=== PATIENT | female | born 1985 | race Two or more races ===

== ENCOUNTER → 2020-11-25 | Day surgery (SDC) | payer OTHER ==
[~2020-11-25] MED LIST: ZESTRIL2.5 MG PO
== END | disposition home or self-care (01) ==
LOC: ADM 11-22 08:30 → CIR.AMB 08:30
PROVIDERS: ATTEND Obstetrics & Gynecology Obstetrics
DX: N85.01 Benign endometrial hyperplasia (principal); Z20.822 Contact with and (suspected) exposure to COVID-19